=== PATIENT | female | born 1965 | race Hispanic/Latino ===

== ENCOUNTER 2022-05-23 09:41 | Emergency (ER) | payer SELFPAY ==
[2022-05-23 10:27] LABS: #Eosinphils 0.2 10x3/uL (0.0-0.5); #Monocytes 0.3 10x3/uL (0.0-1.1); #Neutrophils 1.7 10x3/uL (1.5-8.4); %Basophils 0.3 % (0.0-2.0); %Eosinophils 4.5 % (0.0-6.0); %Lymphocytes 38.4 % (18.0-47.0); %Monocytes 8.9 % (0.0-10.0); %Neutrophils 47.6 % (40.0-75.0); Mean Corpuscular Volume 87.9 fl (81.6-98.3); Mean Platelet Volume 10.1 fl (7.4-10.4); Platelet Count 230 10x3/uL (150-450); Red Blood Cell (RBC) Count 3.79 10x6/uL (3.90-5.03); White Blood Cell (WBC) Count 3.6 10x3/uL (3.5-10.5)
[2022-05-23 10:30] LABS: Anion Gap 13 mmol/L (10-20); BUN (Urea Nitrogen) 17 mg/dL (9.8-20.1); Calc. Creatinine Clearance 0 mL/min (70-130); Calcium 9.2 mg/dL (7.8-10.44); Carbon Dioxide 23 mmol/L (22-29); Chloride 108 mmol/L (98-107); Estimated GFR 85; Glucose 107 mg/dL (70-105); Potassium 3.3 mmol/L (3.5-5.1); Sodium 141 mmol/L (136-145)
== END 2022-05-23 11:35 | disposition home or self-care (01) ==
LOC: CSHERS 09:41
DX: K62.5 Hemorrhage of anus and rectum (principal); I10 Essential (primary) hypertension
CPT/HCPCS: 36415; 80048; 82274; 85025; 99283